=== PATIENT | female | born 1940 | race Caucasian/White ===

== ENCOUNTER 2021-06-22 09:09 | Inpatient (IN) | payer MEDICARE, MEDICAID ==
[~2021-06-22] VITALS: Ht 157.5 cm; Wt 129.1 kg
[~2021-06-22 09:09] MED LIST: ALBU8.5H8 IH; ASPI-989 PO; ATEN-72 PO; BECL8.7A5 IH; CALC-716 PO; DEXT1DRO OU; FISH1CAP27 PO; FURO40 PO; GLIM4 PO; LISI-894 PO; LORA10TA7 PO; LOVA20TA73 PO; OMEP10 PO; POTA-206 PO; PREG50 PO; PREG75 PO; SITA100 PO; TIOT185 IH; VITA400T7 PO
[2021-06-22 10:39] LABS: BASOPHILS % (AUTO) 0.7 % (0.0-2.0); EOSINOPHILS % (AUTO) 0.9 % (1.0-6.0); HEMATOCRIT 31.4 % (36-46); HEMOGLOBIN 9.9 g/dL (12.0-16.0); LYMPHOCYTES # (AUTO) 0.6 K/uL (1.0-4.8); LYMPHOCYTES % (AUTO) 3.9 % (22.0-44.0); MEAN CORPUSCULAR HEMOGLOBIN 30.8 pg (26.0-34.0); MEAN CORPUSCULAR HGB CONC 31.6 G/dL (31.0-37.0); MEAN CORPUSCULAR VOLUME 97 fL (80-100); MONOCYTES # (AUTO) 0.9 K/uL (0.1-1.0); MONOCYTES % (AUTO) 5.6 % (2.0-9.0); NEUTROPHILS # (AUTO) 14.2 K/uL (1.8-7.7); PLATELET COUNT (AUTO) 182 K/uL (150-450); RED BLOOD CELL COUNT(AUTO) 3.23 MIL/uL (4.00-5.20); RED CELL DISTRIBUTION WIDTH 15.9 % (11.5-14.5)
[2021-06-22 10:44] LABS: NEUTROPHILS % (AUTO) 88.9 % (40.0-70.0)
[2021-06-22 10:46] LABS: CALCIUM, TOTAL 7.9 mg/dL (8.8-10.5); CREATININE 4.77 mg/dL (0.60-1.30); POTASSIUM 4.5 mmol/L (3.5-5.1)
[2021-06-22 10:47] LABS: COVID AG,FIA SOURCE NASOPHARYNGEAL
[2021-06-22 11:11] LABS: ALBUMIN 3.2 g/dL (3.4-5.0); BILIRUBIN,TOTAL 0.4 mg/dL (0.1-1.0); TOTAL PROTEIN, SERUM 6.9 g/dL (6.4-8.2)
[2021-06-22 11:45] LABS: INFLUENZA TYPE A NEGATIVE FOR TYPE A (NEGATIVE); INFLUENZA TYPE B NEGATIVE FOR TYPE B (NEGATIVE)
[2021-06-22] MEDS ORDERED: CefTRIAXone 1 GM/DEXTROSE 50 ML IV ONE (12:45)
[2021-06-22] MEDS ORDERED: AZITHROMYCIN 500 MG/NS 250 ML IV ONE (12:45)
[2021-06-22] MEDS ORDERED: FUROSEMIDE 40 MG/4 ML VIAL IVP ONE (12:45)
[2021-06-22] MEDS ORDERED: ALBUTEROL SULFATE HFA 90 MCG/PUFF 8 GM INHALER IH ONE (12:45)
[2021-06-22 14:59] VITALS: BP 111/45
[2021-06-22] MEDS ORDERED: ACET-2247 PO (16:39)
[2021-06-22] MEDS ORDERED: ASPI-1444 PO (16:39)
[2021-06-22] MEDS ORDERED: SIMV-260 PO (16:39)
[2021-06-22] MEDS ORDERED: CHOL-35 PO (16:39)
[2021-06-22] MEDS ORDERED: ASCO500 PO (16:39)
[2021-06-22] MEDS ORDERED: CETI-450 PO (16:39)
[2021-06-22] MEDS ORDERED: BUME1TAB34 PO (16:39)
[2021-06-22] MEDS ORDERED: PREG75 PO (16:39)
[2021-06-22] MEDS ORDERED: CIPR250T6 PO (16:39)
[2021-06-22] MEDS ORDERED: XALA2.5OS OU (16:39)
[2021-06-22] MEDS ORDERED: BUDE10.26 IH (16:39)
[2021-06-22] MEDS ORDERED: SEVE0.8P6 PO (16:39)
[2021-06-22] MEDS ORDERED: FLUT16H NASAL (16:39)
[2021-06-22] MEDS ORDERED: CARB15DR97 OU (16:39)
[2021-06-22] MEDS ORDERED: TIOT185 IH (16:39)
[2021-06-22] MEDS ORDERED: PROP20TA18 PO (16:39)
[2021-06-22] MEDS ORDERED: PANT-31 PO (16:39)
[2021-06-22] MEDS ORDERED: SODIUM CHLORIDE 0.9% 50 ML ONE (16:45)
[2021-06-22] MEDS ORDERED: ACETAMINOPHEN 325 MG TABLET PO PRN ×2 (19:45)
[2021-06-22] MEDS ORDERED: IPRATROPIUM BROMIDE 0.5 MG/2.5 ML NEB SOLUTION NEB PRN ×2 (19:45)
[2021-06-22] MEDS ORDERED: HYDROCODONE/ACETAMINOPHEN 5-325 MG TABLET PO PRN ×2 (19:45)
[2021-06-22] MEDS ORDERED: ONDANSETRON HCL 4 MG/2 ML VIAL IVP PRN (19:45)
[2021-06-22] MEDS ORDERED: BISACODYL 10 MG RECTAL RECTAL SUPPOSITORY PR PRN ×2 (19:45)
[2021-06-22] MEDS ORDERED: MAGNESIUM HYDROXIDE SUSPENSION 30 ML UDCUP PO PRN ×2 (19:45)
[2021-06-22] MEDS ORDERED: MORPHINE SULFATE 2 MG/ML SYRINGE IVP PRN ×2 (19:45)
[2021-06-22] MEDS ORDERED: ZOLPIDEM TARTRATE 5 MG TABLET PO PRN ×2 (19:45)
[2021-06-22] MEDS ORDERED: ALBUTEROL SULFATE 2.5 MG/0.5 ML NEB SOLUTION NEB PRN ×2 (19:45)
[2021-06-22] MEDS ORDERED: SEVE800T17 PO (19:46)
[2021-06-22] MEDS ORDERED: PROP60CA31 PO (19:46)
[2021-06-22 20:32] VITALS: BP 118/65
[2021-06-22] MEDS ORDERED: DOCUSATE SODIUM 100 MG CAPSULE PO SCH (21:00)
[2021-06-22] MEDS: FLUTICASONE PROPIONATE 50 MCG/SPRAY 16 GM NASAL SPRAY NASAL SCH (21:06)
[2021-06-22] MEDS: CARBOXYMETHYLCELLULOSE SODIUM 0.4 ML OPHTHALMIC SOLUTION [PF] OU SCH (21:06)
[2021-06-22] MEDS: LATANOPROST 0.005% 2.5 ML OPHTHALMIC SOLUTION OU SCH (21:07)
[2021-06-22] MEDS: DOCUSATE SODIUM 100 MG CAPSULE PO SCH (21:07)
[2021-06-22] MEDS: BUDESONIDE/FORMOTEROL FUMARATE 160-4.5 MCG/PUFF 10.2 GM INHALER IH SCH (21:07)
[2021-06-22] MEDS: SIMVASTATIN 20 MG TABLET PO SCH (21:11)
[2021-06-22] MEDS: PREGABALIN 75 MG CAPSULE PO SCH (21:11)
[2021-06-22 21:23] LABS: GLUCOMETER DEV NAME(LOC) 5N.1C; GLUCOSE,POINT OF CARE 88 MG/DL (70-110)
[2021-06-22 23:37] VITALS: BP 129/56
[2021-06-22] MEDS: HEPARIN SODIUM,PORCINE 5,000 UNITS/ML VIAL SQ SCH (23:50)
[2021-06-23] MEDS ORDERED: HEPARIN SODIUM,PORCINE 5,000 UNITS/ML VIAL SQ SCH
[2021-06-23 01:02] LABS: GLUCOMETER DEV NAME(LOC) 5N.1C; GLUCOSE,POINT OF CARE 109 MG/DL (70-110)
[2021-06-23 06:14] VITALS: BP 133/59
[2021-06-23 07:46] VITALS: BP 125/65
[2021-06-23] MEDS: HEPARIN SODIUM,PORCINE 5,000 UNITS/ML VIAL SQ SCH ×5 (08:00→23:04)
[2021-06-23] MEDS: CefTRIAXone SODIUM 2 GM in DEXTROSE 5%-WATER 50 ML IV SCH (08:47)
[2021-06-23] MEDS: TIOTROPIUM BROMIDE 18 MCG/INH HANDIHALER [5] IH SCH (08:47)
[2021-06-23] MEDS: PANTOPRAZOLE SODIUM 40 MG/VIAL IVP SCH ×2 (08:49→09:00)
[2021-06-23] MEDS: SEVELAMER CARBONATE 800 MG TABLET PO SCH ×3 (08:52→18:37)
[2021-06-23] MEDS: BUMETANIDE 1 MG TABLET PO SCH (08:52)
[2021-06-23] MEDS: DOCUSATE SODIUM 100 MG CAPSULE PO SCH ×2 (08:53→21:21)
[2021-06-23] MEDS: CETIRIZINE HCL 10 MG TABLET PO SCH (08:54)
[2021-06-23] MEDS: PREGABALIN 75 MG CAPSULE PO SCH ×3 (08:54→21:21)
[2021-06-23] MEDS: CHOLECALCIFEROL (VIT D3) 1,000 UNITS [25 MCG] TABLET PO SCH (08:55)
[2021-06-23] MEDS: ASCORBIC ACID 500 MG TABLET PO SCH (08:55)
[2021-06-23] MEDS: ASPIRIN 81 MG DR TABLET PO SCH (08:55)
[2021-06-23] MEDS: FLUTICASONE PROPIONATE 50 MCG/SPRAY 16 GM NASAL SPRAY NASAL SCH ×2 (08:56→21:23)
[2021-06-23] MEDS: BUDESONIDE/FORMOTEROL FUMARATE 160-4.5 MCG/PUFF 10.2 GM INHALER IH SCH ×2 (08:57→21:23)
[2021-06-23] MEDS ORDERED: PANTOPRAZOLE SODIUM 40 MG DR TABLET PO SCH (09:00)
[2021-06-23] MEDS ORDERED: SODIUM CHLORIDE 0.9% 50 ML ONE (09:14)
[2021-06-23] MEDS: PROPRANOLOL HCL 60 MG ER CAPSULE PO SCH (10:00)
[2021-06-23 10:56] VITALS: BP 128/56
[2021-06-23] MEDS ORDERED: VANCOMYCIN HCL 1.5 GM in DEXTROSE 5%-WATER 250 ML IV ONE (13:45)
[2021-06-23] MEDS ORDERED: VANCOMYCIN HCL 1 GM/D5% WATER 200 ML IV PRN (14:30)
[2021-06-23 15:38] VITALS: BP 122/53
[2021-06-23] MEDS ORDERED: ALBUMIN HUMAN 25%-12.5GM/50ML 50 ML IV PRN (16:15)
[2021-06-23] MEDS ORDERED: MANNITOL 25%-12.5 GM/50 ML VIAL IVP PRN (16:15)
[2021-06-23 17:56] LABS: GLUCOMETER DEV NAME(LOC) 5S.2B; GLUCOSE,POINT OF CARE 112 MG/DL (70-110)
[2021-06-23 21:00] VITALS: BP 140/52
[2021-06-23] MEDS: CARBOXYMETHYLCELLULOSE SODIUM 0.4 ML OPHTHALMIC SOLUTION [PF] OU SCH (21:21)
[2021-06-23] MEDS: SIMVASTATIN 20 MG TABLET PO SCH (21:21)
[2021-06-23] MEDS: ACETAMINOPHEN 325 MG TABLET PO PRN (21:21)
[2021-06-23] MEDS: LATANOPROST 0.005% 2.5 ML OPHTHALMIC SOLUTION OU SCH (21:23)
[2021-06-23 21:38] LABS: GLUCOMETER DEV NAME(LOC) 5N.1C; GLUCOSE,POINT OF CARE 90 MG/DL (70-110)
[2021-06-23 21:38] LABS: GLUCOMETER DEV NAME(LOC) 5N.1C; GLUCOSE,POINT OF CARE 98 MG/DL (70-110)
[2021-06-24] VITALS: BP 118/60
[2021-06-24] MEDS: AZITHROMYCIN 500 MG/NS 250 ML IV SCH (01:27)
[2021-06-24 05:33] VITALS: BP 133/66
[2021-06-24 07:35] LABS: GLUCOMETER DEV NAME(LOC) 5N.1C; GLUCOSE,POINT OF CARE 91 MG/DL (70-110)
[2021-06-24] MEDS: SEVELAMER CARBONATE 800 MG TABLET PO SCH ×4 (08:00→17:00)
[2021-06-24 08:40] VITALS: BP 133/65
[2021-06-24] MEDS: CefTRIAXone SODIUM 2 GM in DEXTROSE 5%-WATER 50 ML IV SCH (08:53)
[2021-06-24] MEDS: HEPARIN SODIUM,PORCINE 5,000 UNITS/ML VIAL SQ SCH ×3 (08:54→23:14)
[2021-06-24] MEDS: PANTOPRAZOLE SODIUM 40 MG/VIAL IVP SCH (08:55)
[2021-06-24] MEDS: TIOTROPIUM BROMIDE 18 MCG/INH HANDIHALER [5] IH SCH (08:55)
[2021-06-24] MEDS: BUMETANIDE 1 MG TABLET PO SCH (08:56)
[2021-06-24] MEDS: CHOLECALCIFEROL (VIT D3) 1,000 UNITS [25 MCG] TABLET PO SCH (08:57)
[2021-06-24] MEDS: PROPRANOLOL HCL 60 MG ER CAPSULE PO SCH (08:57)
[2021-06-24] MEDS: ASCORBIC ACID 500 MG TABLET PO SCH (08:57)
[2021-06-24] MEDS: CETIRIZINE HCL 10 MG TABLET PO SCH (08:57)
[2021-06-24] MEDS: ASPIRIN 81 MG DR TABLET PO SCH (09:00)
[2021-06-24] MEDS: DOCUSATE SODIUM 100 MG CAPSULE PO SCH ×2 (09:00→20:24)
[2021-06-24] MEDS: PREGABALIN 75 MG CAPSULE PO SCH ×3 (09:00→20:23)
[2021-06-24] MEDS: BUDESONIDE/FORMOTEROL FUMARATE 160-4.5 MCG/PUFF 10.2 GM INHALER IH SCH ×2 (09:01→20:25)
[2021-06-24] MEDS: FLUTICASONE PROPIONATE 50 MCG/SPRAY 16 GM NASAL SPRAY NASAL SCH ×2 (09:01→20:25)
[2021-06-24] MEDS ORDERED: SODIUM CHLORIDE 0.9% 250 ML IV ONE (09:40)
[2021-06-24 12:00] VITALS: BP 137/66
[2021-06-24 12:41] LABS: CREATININE 4.77 mg/dL (0.60-1.30); POTASSIUM 5.3 mmol/L (3.5-5.1)
[2021-06-24 12:49] LABS: ALBUMIN 2.9 g/dL (3.4-5.0); BILIRUBIN,TOTAL 0.3 mg/dL (0.1-1.0); TOTAL PROTEIN, SERUM 6.9 g/dL (6.4-8.2)
[2021-06-24 14:12] LABS: BASOPHILS % (AUTO) 0.5 % (0.0-2.0); HEMATOCRIT 33.1 % (36-46); HEMOGLOBIN 10.1 g/dL (12.0-16.0); LYMPHOCYTES # (AUTO) 1.2 K/uL (1.0-4.8); LYMPHOCYTES % (AUTO) 12.4 % (22.0-44.0); MEAN CORPUSCULAR HEMOGLOBIN 30.8 pg (26.0-34.0); MEAN CORPUSCULAR HGB CONC 30.5 G/dL (31.0-37.0); MEAN CORPUSCULAR VOLUME 101 fL (80-100); MONOCYTES # (AUTO) 0.9 K/uL (0.1-1.0); MONOCYTES % (AUTO) 9.1 % (2.0-9.0); NEUTROPHILS # (AUTO) 7.4 K/uL (1.8-7.7); PLATELET COUNT (AUTO) 131 K/uL (150-450); RED BLOOD CELL COUNT(AUTO) 3.28 MIL/uL (4.00-5.20); RED CELL DISTRIBUTION WIDTH 17.1 % (11.5-14.5)
[2021-06-24 16:41] VITALS: BP 119/60
[2021-06-24 20:00] VITALS: BP 118/64
[2021-06-24 20:16] LABS: GLUCOMETER DEV NAME(LOC) 5N.3; GLUCOSE,POINT OF CARE 120 MG/DL (70-110)
[2021-06-24] MEDS: SIMVASTATIN 20 MG TABLET PO SCH (20:23)
[2021-06-24] MEDS: LATANOPROST 0.005% 2.5 ML OPHTHALMIC SOLUTION OU SCH (20:25)
[2021-06-24] MEDS: ACETAMINOPHEN 325 MG TABLET PO PRN (20:28)
[2021-06-24] MEDS: CARBOXYMETHYLCELLULOSE SODIUM 0.4 ML OPHTHALMIC SOLUTION [PF] OU SCH (20:29)
[2021-06-24] MEDS ORDERED: DICLOFENAC SODIUM 1% 100 GM GEL [2GM] TP PRN (21:00)
[2021-06-25] VITALS (7 sets, daily range): BP systolic 104–139; BP diastolic 53–72
[2021-06-25] MEDS: AZITHROMYCIN 500 MG/NS 250 ML IV SCH (00:27)
[2021-06-25 06:40] LABS: EOSINOPHILS % (AUTO) 3.7 % (1.0-6.0); HEMATOCRIT 27.3 % (36-46); HEMOGLOBIN 8.6 g/dL (12.0-16.0); LYMPHOCYTES # (AUTO) 1.4 K/uL (1.0-4.8); LYMPHOCYTES % (AUTO) 20.5 % (22.0-44.0); MEAN CORPUSCULAR HEMOGLOBIN 31.1 pg (26.0-34.0); MEAN CORPUSCULAR HGB CONC 31.7 G/dL (31.0-37.0); MEAN CORPUSCULAR VOLUME 98 fL (80-100); MONOCYTES # (AUTO) 0.7 K/uL (0.1-1.0); MONOCYTES % (AUTO) 10.6 % (2.0-9.0); NEUTROPHILS # (AUTO) 4.4 K/uL (1.8-7.7); NEUTROPHILS % (AUTO) 64.2 % (40.0-70.0); PLATELET COUNT (AUTO) 153 K/uL (150-450); RED BLOOD CELL COUNT(AUTO) 2.78 MIL/uL (4.00-5.20); RED CELL DISTRIBUTION WIDTH 16.4 % (11.5-14.5)
[2021-06-25 07:02] LABS: ALBUMIN 2.6 g/dL (3.4-5.0); BILIRUBIN,TOTAL 0.3 mg/dL (0.1-1.0); CALCIUM, TOTAL 7.8 mg/dL (8.8-10.5); CREATININE 6.07 mg/dL (0.60-1.30); POTASSIUM 5.1 mmol/L (3.5-5.1); TOTAL PROTEIN, SERUM 6.1 g/dL (6.4-8.2)
[2021-06-25] MEDS: DOCUSATE SODIUM 100 MG CAPSULE PO SCH ×2 (08:56→20:52)
[2021-06-25] MEDS: PREGABALIN 75 MG CAPSULE PO SCH ×3 (08:56→20:52)
[2021-06-25] MEDS: ASPIRIN 81 MG DR TABLET PO SCH (08:57)
[2021-06-25] MEDS: HEPARIN SODIUM,PORCINE 5,000 UNITS/ML VIAL SQ SCH ×3 (08:57→22:40)
[2021-06-25] MEDS: PANTOPRAZOLE SODIUM 40 MG/VIAL IVP SCH (08:57)
[2021-06-25] MEDS: FLUTICASONE PROPIONATE 50 MCG/SPRAY 16 GM NASAL SPRAY NASAL SCH ×2 (08:58→20:53)
[2021-06-25] MEDS: BUDESONIDE/FORMOTEROL FUMARATE 160-4.5 MCG/PUFF 10.2 GM INHALER IH SCH ×2 (08:59→20:52)
[2021-06-25] MEDS: TIOTROPIUM BROMIDE 18 MCG/INH HANDIHALER [5] IH SCH (09:00)
[2021-06-25] MEDS ORDERED: SODIUM CHLORIDE 0.9% 2,000 ML ONE (09:10)
[2021-06-25] MEDS: SEVELAMER CARBONATE 800 MG TABLET PO SCH ×3 (09:17→17:58)
[2021-06-25] MEDS: BUMETANIDE 1 MG TABLET PO SCH (09:17)
[2021-06-25] MEDS: CefTRIAXone SODIUM 2 GM in DEXTROSE 5%-WATER 50 ML IV SCH (09:18)
[2021-06-25] MEDS: PROPRANOLOL HCL 60 MG ER CAPSULE PO SCH (09:19)
[2021-06-25] MEDS: CETIRIZINE HCL 10 MG TABLET PO SCH (09:19)
[2021-06-25] MEDS: ASCORBIC ACID 500 MG TABLET PO SCH (10:51)
[2021-06-25] MEDS: CHOLECALCIFEROL (VIT D3) 1,000 UNITS [25 MCG] TABLET PO SCH (10:51)
[2021-06-25 13:59] LABS: GLUCOMETER DEV NAME(LOC) 5N.1C; GLUCOSE,POINT OF CARE 120 MG/DL (70-110)
[2021-06-25 13:59] LABS: GLUCOMETER DEV NAME(LOC) 5N.1C; GLUCOSE,POINT OF CARE 94 MG/DL (70-110)
[2021-06-25 14:00] LABS: GLUCOMETER DEV NAME(LOC) 5N.1C; GLUCOSE,POINT OF CARE 100 MG/DL (70-110)
[2021-06-25] MEDS: ACETAMINOPHEN 325 MG TABLET PO PRN (20:52)
[2021-06-25] MEDS: SIMVASTATIN 20 MG TABLET PO SCH (20:52)
[2021-06-25] MEDS: LATANOPROST 0.005% 2.5 ML OPHTHALMIC SOLUTION OU SCH (20:53)
[2021-06-25] MEDS: CARBOXYMETHYLCELLULOSE SODIUM 0.4 ML OPHTHALMIC SOLUTION [PF] OU SCH (20:55)
[2021-06-26] MEDS: ACETAMINOPHEN 325 MG TABLET PO PRN (00:53)
[2021-06-26] MEDS: AZITHROMYCIN 500 MG/NS 250 ML IV SCH (01:22)
[2021-06-26 05:14] VITALS: BP 124/54
[2021-06-26 06:53] LABS: BASOPHILS % (AUTO) 1.1 % (0.0-2.0); EOSINOPHILS % (AUTO) 3.1 % (1.0-6.0); HEMATOCRIT 28.7 % (36-46); HEMOGLOBIN 9.3 g/dL (12.0-16.0); LYMPHOCYTES # (AUTO) 1.4 K/uL (1.0-4.8); LYMPHOCYTES % (AUTO) 20.9 % (22.0-44.0); MEAN CORPUSCULAR HEMOGLOBIN 31.1 pg (26.0-34.0); MEAN CORPUSCULAR HGB CONC 32.3 G/dL (31.0-37.0); MEAN CORPUSCULAR VOLUME 96 fL (80-100); MONOCYTES # (AUTO) 0.7 K/uL (0.1-1.0); MONOCYTES % (AUTO) 9.5 % (2.0-9.0); NEUTROPHILS # (AUTO) 4.5 K/uL (1.8-7.7); NEUTROPHILS % (AUTO) 65.4 % (40.0-70.0); PLATELET COUNT (AUTO) 139 K/uL (150-450); RED BLOOD CELL COUNT(AUTO) 2.98 MIL/uL (4.00-5.20); RED CELL DISTRIBUTION WIDTH 15.7 % (11.5-14.5)
[2021-06-26 07:01] VITALS: BP 122/62
[2021-06-26 07:01] LABS: ALBUMIN 2.8 g/dL (3.4-5.0); BILIRUBIN,TOTAL 0.4 mg/dL (0.1-1.0); CALCIUM, TOTAL 8.1 mg/dL (8.8-10.5); CREATININE 4.57 mg/dL (0.60-1.30); POTASSIUM 4.5 mmol/L (3.5-5.1); TOTAL PROTEIN, SERUM 6.2 g/dL (6.4-8.2); VANCOMYCIN,RANDOM 11.8 mcg/mL (25.0-50.0)
[2021-06-26] MEDS ORDERED: VANCOMYCIN HCL 1 GM/D5% WATER 200 ML IV ONE (08:00)
[2021-06-26] MEDS: HEPARIN SODIUM,PORCINE 5,000 UNITS/ML VIAL SQ SCH (08:00)
[2021-06-26] MEDS: CefTRIAXone SODIUM 2 GM in DEXTROSE 5%-WATER 50 ML IV SCH (08:05)
[2021-06-26] MEDS: PANTOPRAZOLE SODIUM 40 MG/VIAL IVP SCH (08:08)
[2021-06-26] MEDS: PREGABALIN 75 MG CAPSULE PO SCH (08:09)
[2021-06-26] MEDS: ASPIRIN 81 MG DR TABLET PO SCH (08:09)
[2021-06-26] MEDS: SEVELAMER CARBONATE 800 MG TABLET PO SCH ×2 (08:09→12:36)
[2021-06-26] MEDS: CETIRIZINE HCL 10 MG TABLET PO SCH (08:09)
[2021-06-26] MEDS: ASCORBIC ACID 500 MG TABLET PO SCH (08:09)
[2021-06-26] MEDS: CHOLECALCIFEROL (VIT D3) 1,000 UNITS [25 MCG] TABLET PO SCH (08:09)
[2021-06-26] MEDS: BUMETANIDE 1 MG TABLET PO SCH (08:10)
[2021-06-26] MEDS: DOCUSATE SODIUM 100 MG CAPSULE PO SCH (08:11)
[2021-06-26] MEDS: FLUTICASONE PROPIONATE 50 MCG/SPRAY 16 GM NASAL SPRAY NASAL SCH (08:48)
[2021-06-26] MEDS: BUDESONIDE/FORMOTEROL FUMARATE 160-4.5 MCG/PUFF 10.2 GM INHALER IH SCH (08:49)
[2021-06-26] MEDS: TIOTROPIUM BROMIDE 18 MCG/INH HANDIHALER [5] IH SCH (08:50)
[2021-06-26] MEDS: PROPRANOLOL HCL 60 MG ER CAPSULE PO SCH (09:39)
[2021-06-26 11:31] VITALS: BP 129/58
[2021-06-26] MEDS ORDERED: AZIT-84 PO (12:18)
[2021-06-26] MEDS ORDERED: CEFX2I IM (12:19)
[2021-06-26] MEDS ORDERED: CEFX2I IV (12:19)
[2021-06-26 14:20] VITALS: BP 130/52
== END 2021-06-26 14:45 | DRG 193 ==
LOC: EMS 09:10 → 5N 13:23 → 5S 06-25 06:33
PROVIDERS: ADMIT Hospitalist; ATTEND Hospitalist
DX: J18.9 Pneumonia, unspecified organism (principal); I50.23 Acute on chronic systolic (congestive) heart failure; N18.6 End stage renal disease; E43 Unspecified severe protein-calorie malnutrition; I13.2 Hypertensive heart and chronic kidney disease with heart failure and with stage 5 chronic kidney disease, or end stage renal disease; J44.0 Chronic obstructive pulmonary disease with (acute) lower respiratory infection; E87.1 Hypo-osmolality and hyponatremia; J44.1 Chronic obstructive pulmonary disease with (acute) exacerbation; N25.81 Secondary hyperparathyroidism of renal origin; Z68.43 Body mass index [BMI] 50.0-59.9, adult; R65.10 Systemic inflammatory response syndrome (SIRS) of non-infectious origin without acute organ dysfunction; E11.22 Type 2 diabetes mellitus with diabetic chronic kidney disease; Z20.822 Contact with and (suspected) exposure to COVID-19; E83.39 Other disorders of phosphorus metabolism; E83.51 Hypocalcemia; E87.5 Hyperkalemia; R62.7 Adult failure to thrive; D63.8 Anemia in other chronic diseases classified elsewhere; M81.0 Age-related osteoporosis without current pathological fracture; E11.40 Type 2 diabetes mellitus with diabetic neuropathy, unspecified; I44.0 Atrioventricular block, first degree; Z86.73 Personal history of transient ischemic attack (TIA), and cerebral infarction without residual deficits; Z99.2 Dependence on renal dialysis; Z99.81 Dependence on supplemental oxygen; Z78.9 Other specified health status; Z82.49 Family history of ischemic heart disease and other diseases of the circulatory system; Z83.3 Family history of diabetes mellitus; Z88.8 Allergy status to other drugs, medicaments and biological substances
CPT/HCPCS: 71045; 80053; 80202; 82550; 82962; 83880; 84484; 85025; 85379; 87040; 87081; 87205; 87340; 87804; 93005; 94640; 97110; 97162; 97530; 99285; C9113; J0456; J0696; J1644; J1940; J3370; J3535; J7030; J7050; J7060; 36415-L1; 36415-TC; U0003

== ENCOUNTER 2022-11-20 21:16 | Inpatient (IN) | payer MEDICARE, MEDICAID ==
[~2022-11-20] VITALS: Ht 162.6 cm; Wt 116.5 kg
[~2022-11-20 21:16] MED LIST changes: +ACET-2247 PO; -ALBU8.5H8 IH; +AMLO5TAB66 PO; +AMOX1TAB15 PO; +ASCO500 PO; +ASPI-1444 PO; -ASPI-989 PO; -ATEN-72 PO; +BECL10.62 IH; -BECL8.7A5 IH; +BISA-151 PO; -CALC-716 PO; +CHOL25TA4 PO; -DEXT1DRO OU; +DOCU-350 PO; -FISH1CAP27 PO; +FLUT16SP NASAL; +FURO20 PO; -FURO40 PO; -GLIM4 PO; -LISI-894 PO; +METO-408 PO; -OMEP10 PO; +PANT-31 PO; -POTA-206 PO; -PREG50 PO; +PREG50CA63 PO; -PREG75 PO; +SEVE800T17 PO; -SITA100 PO; -VITA400T7 PO
[2022-11-20 22:37] LABS: COVID AG,FIA SOURCE NASOPHARYNGEAL
[2022-11-20] MEDS: OXYGEN THERAPY IH SCH (22:39)
[2022-11-20 22:56] LABS: INFLUENZA TYPE A NEGATIVE FOR TYPE A (NEGATIVE); INFLUENZA TYPE B NEGATIVE FOR TYPE B (NEGATIVE)
[2022-11-20] MEDS ORDERED: ONDANSETRON HCL 4 MG/2 ML VIAL IVP PRN (23:30)
[2022-11-20] MEDS ORDERED: ALBUTEROL SULFATE 2.5 MG/0.5 ML NEB SOLUTION NEB PRN (23:30)
[2022-11-20] MEDS ORDERED: IPRATROPIUM BROMIDE 0.5 MG/2.5 ML NEB SOLUTION NEB PRN (23:30)
[2022-11-21] MEDS ORDERED: HEPARIN SODIUM,PORCINE 5,000 UNITS/ML VIAL SQ SCH
[2022-11-21 00:25] LABS: EOSINOPHILS % (AUTO) 1.1 % (1.0-6.0); LYMPHOCYTES # (AUTO) 0.6 K/uL (1.0-4.8); MONOCYTES # (AUTO) 0.6 K/uL (0.1-1.0)
[2022-11-21] MEDS: FUROSEMIDE 40 MG/4 ML VIAL IVP ONE ×2 (00:28→02:14)
[2022-11-21 00:29] LABS: BASOPHILS % (AUTO) 1.1 % (0.0-2.0); MEAN CORPUSCULAR HEMOGLOBIN 31.9 pg (26.0-34.0); MEAN CORPUSCULAR HGB CONC 30.5 G/dL (31.0-37.0); MEAN CORPUSCULAR VOLUME 104 fL (80-100); MONOCYTES % (AUTO) 7.6 % (2.0-9.0); NEUTROPHILS % (AUTO) 83.2 % (40.0-70.0); PLATELET COUNT (AUTO) 126 K/uL (150-450); RED BLOOD CELL COUNT(AUTO) 3.44 MIL/uL (4.00-5.20); RED CELL DISTRIBUTION WIDTH 17.2 % (11.5-14.5)
[2022-11-21 00:35] LABS: CALCIUM, TOTAL 7.9 mg/dL (8.8-10.5); CREATININE 5.15 mg/dL (0.60-1.30); POTASSIUM 4.1 mmol/L (3.5-5.1)
[2022-11-21 00:41] LABS: BILIRUBIN,TOTAL 0.3 mg/dL (0.1-1.0); TOTAL PROTEIN, SERUM 6.3 g/dL (6.4-8.2)
[2022-11-21 00:57] LABS: LACTIC ACID 0.3 mmol/L (0.4-2.0)
[2022-11-21] MEDS ORDERED: HEPARIN SODIUM,PORCINE 5,000 UNITS/ML VIAL IVP PRN ×2 (03:15)
[2022-11-21] MEDS ORDERED: HEPARIN SODIUM 25000 UNITS/D5W 250 ML IV PRN (03:15)
[2022-11-21] MEDS ORDERED: BUMETANIDE 0.25 MG/ML 4 ML VIAL IVP ONE (03:30)
[2022-11-21 04:28] LABS: BASOPHILS % (AUTO) 0.6 % (0.0-2.0); EOSINOPHILS % (AUTO) 1.3 % (1.0-6.0); HEMATOCRIT 35.9 % (36-46); LYMPHOCYTES # (AUTO) 0.9 K/uL (1.0-4.8); LYMPHOCYTES % (AUTO) 10.5 % (22.0-44.0); MEAN CORPUSCULAR HEMOGLOBIN 31.9 pg (26.0-34.0); MEAN CORPUSCULAR HGB CONC 30.5 G/dL (31.0-37.0); MEAN CORPUSCULAR VOLUME 105 fL (80-100); MONOCYTES # (AUTO) 0.8 K/uL (0.1-1.0); MONOCYTES % (AUTO) 9.2 % (2.0-9.0); NEUTROPHILS # (AUTO) 6.5 K/uL (1.8-7.7); NEUTROPHILS % (AUTO) 78.4 % (40.0-70.0); PLATELET COUNT (AUTO) 129 K/uL (150-450); RED BLOOD CELL COUNT(AUTO) 3.44 MIL/uL (4.00-5.20); RED CELL DISTRIBUTION WIDTH 17.1 % (11.5-14.5)
[2022-11-21] MEDS: PIPERACILLIN SODIUM/TAZOBACTAM 2.25 GM in DEXTROSE 5%-WATER 50 ML IV SCH ×3 (05:06→20:59)
[2022-11-21 05:39] VITALS: BP 118/54
[2022-11-21] MEDS: SEVELAMER CARBONATE 800 MG TABLET PO SCH ×4 (08:00→18:03)
[2022-11-21] MEDS: ASCORBIC ACID 500 MG TABLET PO SCH ×2 (08:22→13:06)
[2022-11-21] MEDS: OXYGEN THERAPY IH SCH (08:23)
[2022-11-21] MEDS: DOCUSATE SODIUM 250 MG CAPSULE PO SCH ×2 (08:24→13:05)
[2022-11-21] MEDS: METOPROLOL SUCCINATE 25 MG ER TABLET PO SCH ×2 (08:24→13:06)
[2022-11-21] MEDS: LORATADINE 10 MG TABLET PO SCH ×2 (08:24→13:05)
[2022-11-21] MEDS: ASPIRIN 81 MG DR TABLET PO SCH ×2 (08:24→13:06)
[2022-11-21] MEDS: AmLODIPine BESYLATE 5 MG TABLET PO SCH ×2 (08:24→09:00)
[2022-11-21] MEDS: CHOLECALCIFEROL (VIT D3) 1,000 UNITS [25 MCG] TABLET PO SCH ×2 (08:25→13:06)
[2022-11-21] MEDS: DEXAMETHASONE SOD PHOS 4 MG/ML VIAL IVP SCH (08:25)
[2022-11-21 08:50] VITALS: BP 122/50
[2022-11-21] MEDS: PANTOPRAZOLE SODIUM 40 MG DR TABLET PO SCH (09:00)
[2022-11-21 11:26] VITALS: BP 142/45
[2022-11-21] MEDS: FLUTICASONE PROPIONATE 50 MCG/SPRAY 16 GM NASAL SPRAY NASAL SCH ×2 (13:05→21:00)
[2022-11-21] MEDS: TIOTROPIUM BROMIDE 18 MCG/INH HANDIHALER [5] IH SCH (13:05)
[2022-11-21] MEDS ORDERED: LATA2.5D14 OU (13:53)
[2022-11-21 16:24] VITALS: BP 118/49
[2022-11-21 18:37] LABS: GLUCOMETER DEV NAME(LOC) 5N.2C; GLUCOSE,POINT OF CARE 134 MG/DL (70-110)
[2022-11-21 18:46] LABS: GLUCOMETER DEV NAME(LOC) 5S.2C; GLUCOSE,POINT OF CARE 100 MG/DL (70-110)
[2022-11-21 18:46] LABS: GLUCOMETER DEV NAME(LOC) 5S.2C; GLUCOSE,POINT OF CARE 152 MG/DL (70-110)
[2022-11-21 20:03] VITALS: BP 107/63
[2022-11-21] MEDS: HEPARIN SODIUM,PORCINE 5,000 UNITS/ML VIAL SQ SCH (20:59)
[2022-11-21] MEDS: LATANOPROST 0.005% 2.5 ML OPHTHALMIC SOLUTION OU SCH (21:35)
[2022-11-21 23:54] VITALS: BP 108/43
[2022-11-22] VITALS (9 sets, daily range): BP systolic 103–154; BP diastolic 37–62
[2022-11-22] MEDS: PIPERACILLIN SODIUM/TAZOBACTAM 2.25 GM in DEXTROSE 5%-WATER 50 ML IV SCH ×3 (04:02→20:13)
[2022-11-22] MEDS: DEXAMETHASONE SOD PHOS 4 MG/ML VIAL IVP SCH (04:14)
[2022-11-22 07:31] LABS: BASOPHILS % (AUTO) 0.9 % (0.0-2.0); EOSINOPHILS % (AUTO) 0.3 % (1.0-6.0); HEMATOCRIT 32.9 % (36-46); HEMOGLOBIN 10.3 g/dL (12.0-16.0); LYMPHOCYTES # (AUTO) 0.6 K/uL (1.0-4.8); LYMPHOCYTES % (AUTO) 10.6 % (22.0-44.0); MEAN CORPUSCULAR HEMOGLOBIN 32.1 pg (26.0-34.0); MEAN CORPUSCULAR HGB CONC 31.4 G/dL (31.0-37.0); MEAN CORPUSCULAR VOLUME 102 fL (80-100); MONOCYTES # (AUTO) 0.6 K/uL (0.1-1.0); MONOCYTES % (AUTO) 10.1 % (2.0-9.0); NEUTROPHILS # (AUTO) 4.3 K/uL (1.8-7.7); NEUTROPHILS % (AUTO) 78.1 % (40.0-70.0); PLATELET COUNT (AUTO) 156 K/uL (150-450); RED BLOOD CELL COUNT(AUTO) 3.22 MIL/uL (4.00-5.20); RED CELL DISTRIBUTION WIDTH 16.3 % (11.5-14.5)
[2022-11-22 07:38] LABS: CALCIUM, TOTAL 7.8 mg/dL (8.8-10.5); CREATININE 6.68 mg/dL (0.60-1.30); POTASSIUM 4.1 mmol/L (3.5-5.1)
[2022-11-22] MEDS: METOPROLOL SUCCINATE 25 MG ER TABLET PO SCH (09:00)
[2022-11-22] MEDS: AmLODIPine BESYLATE 5 MG TABLET PO SCH (09:00)
[2022-11-22] MEDS: PANTOPRAZOLE SODIUM 40 MG DR TABLET PO SCH (10:38)
[2022-11-22] MEDS: ASCORBIC ACID 500 MG TABLET PO SCH (10:38)
[2022-11-22] MEDS: SEVELAMER CARBONATE 800 MG TABLET PO SCH ×3 (10:38→18:24)
[2022-11-22] MEDS: DOCUSATE SODIUM 250 MG CAPSULE PO SCH (10:38)
[2022-11-22] MEDS: CHOLECALCIFEROL (VIT D3) 1,000 UNITS [25 MCG] TABLET PO SCH (10:39)
[2022-11-22] MEDS: TIOTROPIUM BROMIDE 18 MCG/INH HANDIHALER [5] IH SCH (10:39)
[2022-11-22] MEDS: HEPARIN SODIUM,PORCINE 5,000 UNITS/ML VIAL SQ SCH ×2 (10:39→20:13)
[2022-11-22] MEDS: LORATADINE 10 MG TABLET PO SCH (10:39)
[2022-11-22] MEDS: ASPIRIN 81 MG DR TABLET PO SCH (10:39)
[2022-11-22] MEDS: FLUTICASONE PROPIONATE 50 MCG/SPRAY 16 GM NASAL SPRAY NASAL SCH ×2 (11:04→20:13)
[2022-11-22] MEDS ORDERED: VANCOMYCIN HCL 1.25 GM in DEXTROSE 5%-WATER 250 ML IV ONE (15:00)
[2022-11-22] MEDS ORDERED: VANCOMYCIN 1GM/WATER(PEG/NADA) 200 ML IV PRN (15:00)
[2022-11-22 15:01] LABS: ALBUMIN 2.8 g/dL (3.4-5.0); BILIRUBIN,DIRECT 0.1 mg/dL (0.00-0.20); BILIRUBIN,TOTAL 0.3 mg/dL (0.1-1.0); TOTAL PROTEIN, SERUM 5.9 g/dL (6.4-8.2)
[2022-11-22] MEDS ORDERED: SODIUM CHLORIDE 0.9% 100 ML ONE (17:36)
[2022-11-22] MEDS ORDERED: IOHEXOL 350 MG/ML 100 ML VIAL ONE (17:36)
[2022-11-22] MEDS: LATANOPROST 0.005% 2.5 ML OPHTHALMIC SOLUTION OU SCH (20:22)
[2022-11-23] VITALS (8 sets, daily range): BP systolic 96–147; BP diastolic 39–71
[2022-11-23] MEDS: PIPERACILLIN SODIUM/TAZOBACTAM 2.25 GM in DEXTROSE 5%-WATER 50 ML IV SCH ×3 (04:15→20:15)
[2022-11-23] MEDS: DEXAMETHASONE SOD PHOS 4 MG/ML VIAL IVP SCH (04:18)
[2022-11-23 07:19] LABS: BASOPHILS % (AUTO) 0.8 % (0.0-2.0); EOSINOPHILS % (AUTO) 0.2 % (1.0-6.0); HEMOGLOBIN 10.4 g/dL (12.0-16.0); LYMPHOCYTES # (AUTO) 0.5 K/uL (1.0-4.8); LYMPHOCYTES % (AUTO) 7.5 % (22.0-44.0); MEAN CORPUSCULAR HEMOGLOBIN 31.3 pg (26.0-34.0); MEAN CORPUSCULAR HGB CONC 30.5 G/dL (31.0-37.0); MEAN CORPUSCULAR VOLUME 103 fL (80-100); MONOCYTES # (AUTO) 0.5 K/uL (0.1-1.0); MONOCYTES % (AUTO) 6.8 % (2.0-9.0); NEUTROPHILS # (AUTO) 6.1 K/uL (1.8-7.7); NEUTROPHILS % (AUTO) 84.7 % (40.0-70.0); PLATELET COUNT (AUTO) 193 K/uL (150-450); RED BLOOD CELL COUNT(AUTO) 3.31 MIL/uL (4.00-5.20); RED CELL DISTRIBUTION WIDTH 16.4 % (11.5-14.5)
[2022-11-23 07:25] LABS: CALCIUM, TOTAL 8.3 mg/dL (8.8-10.5); CREATININE 5.53 mg/dL (0.60-1.30)
[2022-11-23] MEDS: DOCUSATE SODIUM 250 MG CAPSULE PO SCH (09:59)
[2022-11-23] MEDS: METOPROLOL SUCCINATE 25 MG ER TABLET PO SCH (10:00)
[2022-11-23] MEDS: CHOLECALCIFEROL (VIT D3) 1,000 UNITS [25 MCG] TABLET PO SCH (10:01)
[2022-11-23] MEDS: TIOTROPIUM BROMIDE 18 MCG/INH HANDIHALER [5] IH SCH (10:01)
[2022-11-23] MEDS: LORATADINE 10 MG TABLET PO SCH (10:01)
[2022-11-23] MEDS: ASPIRIN 81 MG DR TABLET PO SCH (10:01)
[2022-11-23] MEDS: AmLODIPine BESYLATE 5 MG TABLET PO SCH (10:01)
[2022-11-23] MEDS: ASCORBIC ACID 500 MG TABLET PO SCH (10:01)
[2022-11-23] MEDS: SEVELAMER CARBONATE 800 MG TABLET PO SCH ×3 (10:01→19:04)
[2022-11-23] MEDS: PANTOPRAZOLE SODIUM 40 MG DR TABLET PO SCH (10:02)
[2022-11-23] MEDS: HEPARIN SODIUM,PORCINE 5,000 UNITS/ML VIAL SQ SCH ×2 (10:02→20:16)
[2022-11-23] MEDS: FLUTICASONE PROPIONATE 50 MCG/SPRAY 16 GM NASAL SPRAY NASAL SCH ×2 (10:08→20:15)
[2022-11-23] MEDS ORDERED: SODIUM CHLORIDE 0.9% 100 ML ONE ×2 (10:22→13:31)
[2022-11-23] MEDS ORDERED: IOHEXOL 350 MG/ML 100 ML VIAL ONE (10:22)
[2022-11-23] MEDS: ACETAMINOPHEN 325 MG TABLET PO PRN (12:46)
[2022-11-23] MEDS ORDERED: IOHEXOL 350 MG/ML 150 ML VIAL ONE (13:31)
[2022-11-23] MEDS: LATANOPROST 0.005% 2.5 ML OPHTHALMIC SOLUTION OU SCH (20:16)
[2022-11-23] MEDS ORDERED: SODIUM CHLORIDE 0.9% 500 ML IV ONE (20:30)
[2022-11-24] VITALS (12 sets, daily range): BP systolic 104–137; BP diastolic 35–62
[2022-11-24 00:11] LABS: GLUCOMETER DEV NAME(LOC) 6N.2B; GLUCOSE,POINT OF CARE 152 MG/DL (70-110)
[2022-11-24] MEDS: PIPERACILLIN SODIUM/TAZOBACTAM 2.25 GM in DEXTROSE 5%-WATER 50 ML IV SCH ×3 (03:56→20:14)
[2022-11-24] MEDS: DEXAMETHASONE SOD PHOS 4 MG/ML VIAL IVP SCH (04:55)
[2022-11-24 07:30] LABS: BASOPHILS % (AUTO) 0.8 % (0.0-2.0); EOSINOPHILS % (AUTO) 0.6 % (1.0-6.0); HEMATOCRIT 33.5 % (36-46); HEMOGLOBIN 10.3 g/dL (12.0-16.0); LYMPHOCYTES # (AUTO) 0.6 K/uL (1.0-4.8); LYMPHOCYTES % (AUTO) 8.8 % (22.0-44.0); MEAN CORPUSCULAR HEMOGLOBIN 31.4 pg (26.0-34.0); MEAN CORPUSCULAR HGB CONC 30.8 G/dL (31.0-37.0); MEAN CORPUSCULAR VOLUME 102 fL (80-100); MONOCYTES # (AUTO) 0.4 K/uL (0.1-1.0); NEUTROPHILS # (AUTO) 5.4 K/uL (1.8-7.7); NEUTROPHILS % (AUTO) 83.8 % (40.0-70.0); PLATELET COUNT (AUTO) 194 K/uL (150-450); RED BLOOD CELL COUNT(AUTO) 3.28 MIL/uL (4.00-5.20); RED CELL DISTRIBUTION WIDTH 16.6 % (11.5-14.5)
[2022-11-24 07:40] LABS: CALCIUM, TOTAL 8.4 mg/dL (8.8-10.5); CREATININE 6.92 mg/dL (0.60-1.30); POTASSIUM 4.1 mmol/L (3.5-5.1)
[2022-11-24] MEDS: CHOLECALCIFEROL (VIT D3) 1,000 UNITS [25 MCG] TABLET PO SCH (08:12)
[2022-11-24] MEDS: AmLODIPine BESYLATE 5 MG TABLET PO SCH (08:12)
[2022-11-24] MEDS: ASCORBIC ACID 500 MG TABLET PO SCH (08:12)
[2022-11-24] MEDS: PANTOPRAZOLE SODIUM 40 MG DR TABLET PO SCH (08:13)
[2022-11-24] MEDS: DOCUSATE SODIUM 250 MG CAPSULE PO SCH (08:13)
[2022-11-24] MEDS: TIOTROPIUM BROMIDE 18 MCG/INH HANDIHALER [5] IH SCH (08:14)
[2022-11-24] MEDS: HEPARIN SODIUM,PORCINE 5,000 UNITS/ML VIAL SQ SCH ×2 (08:14→20:14)
[2022-11-24] MEDS: ASPIRIN 81 MG DR TABLET PO SCH (08:14)
[2022-11-24] MEDS: METOPROLOL SUCCINATE 25 MG ER TABLET PO SCH (08:15)
[2022-11-24] MEDS: LORATADINE 10 MG TABLET PO SCH (08:15)
[2022-11-24] MEDS: FLUTICASONE PROPIONATE 50 MCG/SPRAY 16 GM NASAL SPRAY NASAL SCH ×2 (08:27→20:14)
[2022-11-24] MEDS: SEVELAMER CARBONATE 800 MG TABLET PO SCH ×3 (08:31→18:13)
[2022-11-24 08:42] LABS: VANCOMYCIN,RANDOM 9.8 mcg/mL (25.0-50.0)
[2022-11-24] MEDS ORDERED: VANCOMYCIN 1GM/WATER(PEG/NADA) 200 ML IV ONE (09:00)
[2022-11-24] MEDS: ACETAMINOPHEN 325 MG TABLET PO PRN (18:49)
[2022-11-24] MEDS: LATANOPROST 0.005% 2.5 ML OPHTHALMIC SOLUTION OU SCH (20:14)
[2022-11-25] VITALS (10 sets, daily range): BP systolic 103–130; BP diastolic 37–59
[2022-11-25] MEDS: PIPERACILLIN SODIUM/TAZOBACTAM 2.25 GM in DEXTROSE 5%-WATER 50 ML IV SCH ×3 (04:24→20:22)
[2022-11-25] MEDS: DEXAMETHASONE SOD PHOS 4 MG/ML VIAL IVP SCH (04:25)
[2022-11-25] MEDS: TIOTROPIUM BROMIDE 18 MCG/INH HANDIHALER [5] IH SCH (08:56)
[2022-11-25] MEDS: DOCUSATE SODIUM 250 MG CAPSULE PO SCH (08:57)
[2022-11-25] MEDS: LORATADINE 10 MG TABLET PO SCH (08:57)
[2022-11-25] MEDS: METOPROLOL SUCCINATE 25 MG ER TABLET PO SCH (08:58)
[2022-11-25] MEDS: ASCORBIC ACID 500 MG TABLET PO SCH (08:59)
[2022-11-25] MEDS: PANTOPRAZOLE SODIUM 40 MG DR TABLET PO SCH (08:59)
[2022-11-25] MEDS: SEVELAMER CARBONATE 800 MG TABLET PO SCH ×3 (08:59→18:01)
[2022-11-25] MEDS: CHOLECALCIFEROL (VIT D3) 1,000 UNITS [25 MCG] TABLET PO SCH (08:59)
[2022-11-25] MEDS: AmLODIPine BESYLATE 5 MG TABLET PO SCH (08:59)
[2022-11-25] MEDS: HEPARIN SODIUM,PORCINE 5,000 UNITS/ML VIAL SQ SCH ×2 (09:00→20:23)
[2022-11-25] MEDS: ASPIRIN 81 MG DR TABLET PO SCH (09:00)
[2022-11-25] MEDS: FLUTICASONE PROPIONATE 50 MCG/SPRAY 16 GM NASAL SPRAY NASAL SCH ×2 (09:01→20:23)
[2022-11-25 09:40] LABS: COVID AG,FIA SOURCE NASOPHARYNGEAL
[2022-11-25 11:56] LABS: GLUCOMETER DEV NAME(LOC) 6N.1; GLUCOSE,POINT OF CARE 137 MG/DL (70-110)
[2022-11-25] MEDS: LATANOPROST 0.005% 2.5 ML OPHTHALMIC SOLUTION OU SCH (20:23)
[2022-11-26] MEDS: PIPERACILLIN SODIUM/TAZOBACTAM 2.25 GM in DEXTROSE 5%-WATER 50 ML IV SCH ×3 (03:39→21:01)
[2022-11-26 04:55] VITALS: BP 142/55
[2022-11-26] MEDS: DEXAMETHASONE SOD PHOS 4 MG/ML VIAL IVP SCH (04:56)
[2022-11-26 07:21] LABS: ALBUMIN 2.9 g/dL (3.4-5.0); BILIRUBIN,TOTAL 0.4 mg/dL (0.1-1.0); C-REACTIVE PROTEIN QUANT 0.16 mg/dL (0.00-0.30); CALCIUM, TOTAL 8.7 mg/dL (8.8-10.5); CREATININE 4.88 mg/dL (0.60-1.30); POTASSIUM 3.5 mmol/L (3.5-5.1); TOTAL PROTEIN, SERUM 5.9 g/dL (6.4-8.2); VANCOMYCIN,RANDOM 13.9 mcg/mL (25.0-50.0)
[2022-11-26 07:53] VITALS: BP 119/52
[2022-11-26] MEDS: HEPARIN SODIUM,PORCINE 5,000 UNITS/ML VIAL SQ SCH ×2 (08:26→21:01)
[2022-11-26] MEDS: SEVELAMER CARBONATE 800 MG TABLET PO SCH ×3 (08:26→18:03)
[2022-11-26] MEDS: FOLIC ACID/VIT B COMPLEX AND C TABLET PO SCH (08:26)
[2022-11-26] MEDS: METOPROLOL SUCCINATE 25 MG ER TABLET PO SCH (08:27)
[2022-11-26] MEDS: LORATADINE 10 MG TABLET PO SCH (08:27)
[2022-11-26] MEDS: ASCORBIC ACID 500 MG TABLET PO SCH (08:27)
[2022-11-26] MEDS: CHOLECALCIFEROL (VIT D3) 1,000 UNITS [25 MCG] TABLET PO SCH (08:27)
[2022-11-26] MEDS: DOCUSATE SODIUM 250 MG CAPSULE PO SCH (08:27)
[2022-11-26] MEDS: PANTOPRAZOLE SODIUM 40 MG DR TABLET PO SCH (08:27)
[2022-11-26] MEDS: ASPIRIN 81 MG DR TABLET PO SCH (08:27)
[2022-11-26] MEDS: AmLODIPine BESYLATE 5 MG TABLET PO SCH (08:27)
[2022-11-26] MEDS: LATANOPROST 0.005% 2.5 ML OPHTHALMIC SOLUTION OU SCH ×2 (08:30→21:01)
[2022-11-26] MEDS: FLUTICASONE PROPIONATE 50 MCG/SPRAY 16 GM NASAL SPRAY NASAL SCH ×2 (08:30→21:01)
[2022-11-26] MEDS: TIOTROPIUM BROMIDE 18 MCG/INH HANDIHALER [5] IH SCH (10:04)
[2022-11-26 12:51] LABS: GLUCOMETER DEV NAME(LOC) 6N.2B; GLUCOSE,POINT OF CARE 222 MG/DL (70-110)
[2022-11-26] MEDS ORDERED: VANCOMYCIN 1GM/WATER(PEG/NADA) 200 ML IV ONE (13:00)
[2022-11-26] MEDS ORDERED: INDIUM IN-111 OXYQUINOLINE/.5MCL ISOTOPE 1 EA INJ INJ ONE (15:55)
[2022-11-26 20:06] VITALS: BP 123/52
[2022-11-26] MEDS ORDERED: SODIUM CHLORIDE 0.9% 500 ML IV ONE (21:04)
[2022-11-27] VITALS (13 sets, daily range): BP systolic 115–141; BP diastolic 45–85
[2022-11-27] MEDS: PIPERACILLIN SODIUM/TAZOBACTAM 2.25 GM in DEXTROSE 5%-WATER 50 ML IV SCH ×3 (03:37→20:18)
[2022-11-27] MEDS: DEXAMETHASONE SOD PHOS 4 MG/ML VIAL IVP SCH (04:05)
[2022-11-27] MEDS: CHOLECALCIFEROL (VIT D3) 1,000 UNITS [25 MCG] TABLET PO SCH (08:32)
[2022-11-27] MEDS: ASCORBIC ACID 500 MG TABLET PO SCH (08:32)
[2022-11-27] MEDS: ASPIRIN 81 MG DR TABLET PO SCH (08:32)
[2022-11-27] MEDS: SEVELAMER CARBONATE 800 MG TABLET PO SCH ×3 (08:32→17:55)
[2022-11-27] MEDS: DOCUSATE SODIUM 250 MG CAPSULE PO SCH (08:33)
[2022-11-27] MEDS: LORATADINE 10 MG TABLET PO SCH (08:33)
[2022-11-27] MEDS: PANTOPRAZOLE SODIUM 40 MG DR TABLET PO SCH (08:33)
[2022-11-27] MEDS: FOLIC ACID/VIT B COMPLEX AND C TABLET PO SCH (08:33)
[2022-11-27] MEDS: TIOTROPIUM BROMIDE 18 MCG/INH HANDIHALER [5] IH SCH (08:34)
[2022-11-27] MEDS: HEPARIN SODIUM,PORCINE 5,000 UNITS/ML VIAL SQ SCH ×2 (08:36→20:18)
[2022-11-27] MEDS: FLUTICASONE PROPIONATE 50 MCG/SPRAY 16 GM NASAL SPRAY NASAL SCH ×2 (08:37→20:20)
[2022-11-27] MEDS: METOPROLOL SUCCINATE 25 MG ER TABLET PO SCH (09:00)
[2022-11-27] MEDS ORDERED: SODIUM CHLORIDE 0.9% 2,000 ML ONE (12:13)
[2022-11-27] MEDS: LATANOPROST 0.005% 2.5 ML OPHTHALMIC SOLUTION OU SCH (20:19)
[2022-11-27] MEDS: ACETAMINOPHEN 325 MG TABLET PO PRN (20:19)
[2022-11-28] MEDS: PIPERACILLIN SODIUM/TAZOBACTAM 2.25 GM in DEXTROSE 5%-WATER 50 ML IV SCH ×2 (03:32→12:09)
[2022-11-28 03:37] VITALS: BP 122/81
[2022-11-28] MEDS: DEXAMETHASONE SOD PHOS 4 MG/ML VIAL IVP SCH (05:40)
[2022-11-28 08:03] VITALS: BP 129/68
[2022-11-28] MEDS: CHOLECALCIFEROL (VIT D3) 1,000 UNITS [25 MCG] TABLET PO SCH (08:22)
[2022-11-28] MEDS: ASPIRIN 81 MG DR TABLET PO SCH (08:22)
[2022-11-28] MEDS: SEVELAMER CARBONATE 800 MG TABLET PO SCH ×2 (08:22→12:08)
[2022-11-28] MEDS: PANTOPRAZOLE SODIUM 40 MG DR TABLET PO SCH (08:22)
[2022-11-28] MEDS: HEPARIN SODIUM,PORCINE 5,000 UNITS/ML VIAL SQ SCH (08:22)
[2022-11-28] MEDS: TIOTROPIUM BROMIDE 18 MCG/INH HANDIHALER [5] IH SCH (08:22)
[2022-11-28] MEDS: ASCORBIC ACID 500 MG TABLET PO SCH (08:22)
[2022-11-28] MEDS: FOLIC ACID/VIT B COMPLEX AND C TABLET PO SCH (08:22)
[2022-11-28] MEDS: DOCUSATE SODIUM 250 MG CAPSULE PO SCH (08:23)
[2022-11-28] MEDS: LORATADINE 10 MG TABLET PO SCH (08:23)
[2022-11-28] MEDS: METOPROLOL SUCCINATE 25 MG ER TABLET PO SCH (08:23)
[2022-11-28] MEDS: FLUTICASONE PROPIONATE 50 MCG/SPRAY 16 GM NASAL SPRAY NASAL SCH (08:23)
[2022-11-28] MEDS ORDERED: AmLODIPine BESYLATE 5 MG TABLET PO SCH (09:00)
[2022-11-28 14:30] VITALS: BP 128/56
[2022-11-28] MEDS ORDERED: FOLI0.4T6 PO (14:50)
[2022-11-28] MEDS ORDERED: TIOT185 IH (14:54)
[2022-11-28] MEDS ORDERED: VANC1PIG IVPB (14:56)
[2022-11-29 09:07] LABS: IGM (IMMUNOFIXATION) 25 mg/dL (26-217)
[2022-11-29 11:06] LABS: FREE KAPPA LIGHT CHAINS,S 74.1 mg/L (3.3-19.4); FREE KAPPA/LAMBDA LT CHN RATIO 1.82 (0.26-1.65)
== END 2022-11-28 15:35 | DRG 871 ==
LOC: EMS 21:17 → 5N 11-21 05:23 → 6N 11-23 15:15
PROVIDERS: ADMIT Internal Medicine; ATTEND Internal Medicine
PROC: 02HV33Z Insertion of Infusion Device into Superior Vena Cava, Percutaneous Approach (ICD-10-PCS; 2022-11-21)
PROC: B548ZZA Ultrasonography of Superior Vena Cava, Guidance (ICD-10-PCS; 2022-11-21)
PROC: 5A1D70Z Performance of Urinary Filtration, Intermittent, Less than 6 Hours Per Day (ICD-10-PCS; principal; 2022-11-22)
PROC: 5A1D70Z Performance of Urinary Filtration, Intermittent, Less than 6 Hours Per Day (ICD-10-PCS; 2022-11-24)
PROC: 5A1D70Z Performance of Urinary Filtration, Intermittent, Less than 6 Hours Per Day (ICD-10-PCS; 2022-11-25)
PROC: 5A1D70Z Performance of Urinary Filtration, Intermittent, Less than 6 Hours Per Day (ICD-10-PCS; 2022-11-27)
DX: A41.9 Sepsis, unspecified organism (principal); G93.41 Metabolic encephalopathy; U07.1 COVID-19; J96.01 Acute respiratory failure with hypoxia; N18.6 End stage renal disease; I50.43 Acute on chronic combined systolic (congestive) and diastolic (congestive) heart failure; J69.0 Pneumonitis due to inhalation of food and vomit; I21.A1 Myocardial infarction type 2; J44.1 Chronic obstructive pulmonary disease with (acute) exacerbation; Z68.42 Body mass index [BMI] 45.0-49.9, adult; R64 Cachexia; I13.2 Hypertensive heart and chronic kidney disease with heart failure and with stage 5 chronic kidney disease, or end stage renal disease; I42.9 Cardiomyopathy, unspecified; E87.1 Hypo-osmolality and hyponatremia; J44.0 Chronic obstructive pulmonary disease with (acute) lower respiratory infection; N25.81 Secondary hyperparathyroidism of renal origin; E46 Unspecified protein-calorie malnutrition; Z99.2 Dependence on renal dialysis; E66.01 Morbid (severe) obesity due to excess calories; R62.7 Adult failure to thrive; E11.22 Type 2 diabetes mellitus with diabetic chronic kidney disease; E83.51 Hypocalcemia; E83.39 Other disorders of phosphorus metabolism; E88.09 Other disorders of plasma-protein metabolism, not elsewhere classified; M81.0 Age-related osteoporosis without current pathological fracture; E78.5 Hyperlipidemia, unspecified; D69.6 Thrombocytopenia, unspecified; D63.1 Anemia in chronic kidney disease; K21.9 Gastro-esophageal reflux disease without esophagitis; E11.40 Type 2 diabetes mellitus with diabetic neuropathy, unspecified; K57.30 Diverticulosis of large intestine without perforation or abscess without bleeding; E87.5 Hyperkalemia; F32.A Depression, unspecified; G47.30 Sleep apnea, unspecified; H40.9 Unspecified glaucoma; I69.30 Unspecified sequelae of cerebral infarction; Z91.040 Latex allergy status; Z88.5 Allergy status to narcotic agent; Z88.8 Allergy status to other drugs, medicaments and biological substances; Z91.018 Allergy to other foods; Z91.09 Other allergy status, other than to drugs and biological substances; Z79.899 Other long term (current) drug therapy; Z91.011 Allergy to milk products; Z79.82 Long term (current) use of aspirin
CPT/HCPCS: 70450; 71045; 71260; 72193; 74160; 78806; 80048; 80053; 80076; 80202; 82784; 82962; 83605; 83690; 83880; 83883; 84145; 84155; 84165; 84484; 85025; 85730; 86140; 86334; 87040; 87077; 87205; 87340; 87804; 90935; 92526; 92610; 93005; 93306; 93990; 99291; A9547; J1100; J1644; J1940; J2543; J3370; J7030; J7040; J7050; J7060; Q9967; 36415-L1; 36415-TC; U0003

== ENCOUNTER 2023-02-24 18:50 | Emergency (ER) | payer MEDICARE, MEDICAID ==
[~2023-02-24] VITALS: Ht 157.5 cm; Wt 126.1 kg
[~2023-02-24 18:50] MED LIST changes: -AMOX1TAB15 PO; -BECL10.62 IH; +FOLI0.4T6 PO; -FURO20 PO; +HEPA500018 SQ; +LATA2.5D14 OU; -LOVA20TA73 PO; -PREG50CA63 PO; +VANC1PIG IVPB; +[UNRECOGNIZED DRUG - CODE] SQ
[2023-02-24] MEDS ORDERED: GELATIN SPONGE,ABSORBABLE 12-7 MM TP ONE (21:45)
[2023-02-24 22:31] LABS: BASOPHILS % (AUTO) 0.5 % (0.0-2.0); HEMATOCRIT 34.6 % (36-46); HEMOGLOBIN 10.3 g/dL (12.0-16.0); LYMPHOCYTES # (AUTO) 0.9 K/uL (1.0-4.8); LYMPHOCYTES % (AUTO) 11.6 % (22.0-44.0); MEAN CORPUSCULAR HEMOGLOBIN 31.9 pg (26.0-34.0); MEAN CORPUSCULAR HGB CONC 29.9 G/dL (31.0-37.0); MEAN CORPUSCULAR VOLUME 107 fL (80-100); MONOCYTES # (AUTO) 0.8 K/uL (0.1-1.0); MONOCYTES % (AUTO) 10.8 % (2.0-9.0); NEUTROPHILS # (AUTO) 5.9 K/uL (1.8-7.7); NEUTROPHILS % (AUTO) 75.1 % (40.0-70.0); PLATELET COUNT (AUTO) 101 K/uL (150-450); RED BLOOD CELL COUNT(AUTO) 3.24 MIL/uL (4.00-5.20); RED CELL DISTRIBUTION WIDTH 16.7 % (11.5-14.5)
[2023-02-24 22:39] LABS: CALCIUM, TOTAL 8.7 mg/dL (8.8-10.5); CREATININE 3.55 mg/dL (0.60-1.30); POTASSIUM 3.9 mmol/L (3.5-5.1)
[2023-02-24 22:46] LABS: ALBUMIN 3.2 g/dL (3.4-5.0); BILIRUBIN,TOTAL 0.2 mg/dL (0.1-1.0); TOTAL PROTEIN, SERUM 6.8 g/dL (6.4-8.2)
[2023-02-25 00:19] VITALS: BP 110/71; PULSE 77; RESP 17; TEMP 97.6
== END 2023-02-25 01:37 | disposition home or self-care (01) ==
LOC: EMS 18:55
DX: T82.838A Hemorrhage due to vascular prosthetic devices, implants and grafts, initial encounter (principal); J45.909 Unspecified asthma, uncomplicated; I11.0 Hypertensive heart disease with heart failure; I50.9 Heart failure, unspecified; J44.9 Chronic obstructive pulmonary disease, unspecified; F32.A Depression, unspecified; E78.00 Pure hypercholesterolemia, unspecified; K21.9 Gastro-esophageal reflux disease without esophagitis; I25.2 Old myocardial infarction; I63.9 Cerebral infarction, unspecified; E11.22 Type 2 diabetes mellitus with diabetic chronic kidney disease; N18.6 End stage renal disease; Z88.5 Allergy status to narcotic agent; Z88.8 Allergy status to other drugs, medicaments and biological substances; Z91.040 Latex allergy status; Z91.011 Allergy to milk products; Z91.018 Allergy to other foods; Y92.89 Other specified places as the place of occurrence of the external cause
CPT/HCPCS: 80053; 85025; 99283

== ENCOUNTER 2023-08-02 05:49 | Day surgery (SDC) | payer MEDICARE, MEDICAID ==
[~2023-08-02] VITALS: Ht 157.5 cm; Wt 103.6 kg
[~2023-08-02 05:49] MED LIST changes: -AMLO5TAB66 PO; -ASCO500 PO; -DOCU-350 PO; +DOCU-412 PO; -FOLI0.4T6 PO; +FOLI0.8T22 PO; -HEPA500018 SQ; +INSU100V SQ; -LORA10TA7 PO; -PANT-31 PO; +PANT20TA18 PO; +PREG50CA64 PO; -VANC1PIG IVPB; -[UNRECOGNIZED DRUG - CODE] SQ
[2023-08-02] MEDS ORDERED: HYALURONATE SOD 8.5MG/0.85ML 10 MG/ML SYRINGE IO ONE (05:50)
[2023-08-02] MEDS: KETOROLAC TROMETHAMINE 0.5% 5 ML OPHTHALMIC SOLUTION OD SCH ×3 (06:11→06:26)
[2023-08-02] MEDS: TROPICAMIDE 1% 2 ML OPHTHALMIC SOLUTION OD SCH ×3 (06:12→06:26)
[2023-08-02] MEDS: PHENYLEPHRINE HCL 2.5% 2 ML OPHTHALMIC SOLUTION OD SCH ×3 (06:12→06:27)
[2023-08-02] MEDS: CYCLOPENTOLATE HCL 1% 2 ML OPHTHALMIC SOLUTION OD SCH ×3 (06:12→06:26)
[2023-08-02] MEDS: MOXIFLOXACIN HCL 0.5% 3 ML OPHTHALMIC SOLUTION OD SCH ×3 (06:13→06:27)
[2023-08-02] MEDS: TETRACAINE HCL/PF 0.5% 4 ML OPHTHALMIC SOLUTION OD SCH ×3 (06:13→06:27)
[2023-08-02] MEDS ORDERED: EPINEPHrine 1:1,000 [1 MG/ML] VIAL ONE (06:58)
[2023-08-02] MEDS ORDERED: LIDOCAINE/PF 1% 2 ML VIAL ONE (06:58)
[2023-08-02] MEDS ORDERED: BALANCED SALT 15 ML OPHTHALMIC IRRIG.SOLN ONE (06:59)
[2023-08-02] MEDS ORDERED: RINGERS SOLUTION,LACTATED 500 ML IV ONE (07:00)
[2023-08-02] MEDS ORDERED: TETRACAINE HCL/PF 0.5% 4 ML OPHTHALMIC SOLUTION OD ONE (08:00)
[2023-08-02] MEDS ORDERED: PROPARACAINE HCL 0.5% 15 ML OPHTHALMIC SOLUTION OD ONE (08:00)
[2023-08-02] MEDS ORDERED: POVIDONE-IODINE 5% 30 ML OPHTHALMIC SOLUTION ONE (08:53)
[2023-08-02] MEDS ORDERED: TETRACAINE HCL/PF 0.5% 4 ML OPHTHALMIC SOLUTION ONE ×2 (08:54→08:55)
[2023-08-02] MEDS ORDERED: NEOMYCIN/POLYMYXIN B/DEXAMETH 3.5 GM OPHTHALMIC OINTMENT ONE (08:54)
[2023-08-02] MEDS ORDERED: PrednisoLONE ACETATE 1% 5 ML OPHTHALMIC SUSPENSION ONE (09:05)
== END 2023-08-02 10:50 | disposition home or self-care (01) ==
LOC: SURGERY 05:49
PROVIDERS: ATTEND Ophthalmology
DX: H25.11 Age-related nuclear cataract, right eye (principal); I12.9 Hypertensive chronic kidney disease with stage 1 through stage 4 chronic kidney disease, or unspecified chronic kidney disease; N18.9 Chronic kidney disease, unspecified; I25.2 Old myocardial infarction; M19.90 Unspecified osteoarthritis, unspecified site; E78.00 Pure hypercholesterolemia, unspecified; Z86.16 Personal history of COVID-19; Z99.2 Dependence on renal dialysis
CPT/HCPCS: 93005; 66984; J0171; J3490; Q9967; J7120; V2632

== ENCOUNTER 2023-12-01 18:04 | Emergency (ER) | payer MEDICARE, MEDICAID ==
[~2023-12-01] VITALS: Ht 167.6 cm; Wt 105.4 kg
[~2023-12-01 18:04] MED LIST changes: -SEVE800T17 PO; +SEVE800T38 PO
[2023-12-01] MEDS ORDERED: ETOMIDATE 2 MG/ML 10 ML VIAL ONE (18:08)
[2023-12-01] MEDS ORDERED: PHENYLEPHRINE HCL IN 0.9% NACL 400 MCG/10 ML SYRINGE IVP ONE ×2 (18:09→19:45)
[2023-12-01] MEDS ORDERED: ROCURONIUM BROMIDE 10 MG/ML 5 ML VIAL ONE (18:09)
[2023-12-01 18:22] VITALS: PULSE 115; RESP 18; O2SAT 99
[2023-12-01 18:23] VITALS: RESP 18; TEMP 94
[2023-12-01] MEDS ORDERED: PROPOFOL 1000 MG/ISO-OSM 100 ML IV PRN (18:30)
[2023-12-01] MEDS ORDERED: VASOPRESSIN 40 UNITS in DEXTROSE 5%-WATER 98 ML IV PRN (18:45)
[2023-12-01] MEDS: NOREPINEPHRINE 8 MG/0.9 % NACL 250 ML IV PRN (18:54)
[2023-12-01] MEDS: ROCURONIUM BROMIDE 10 MG/ML 5 ML VIAL IVP ONE (18:55)
[2023-12-01] MEDS: ETOMIDATE 2 MG/ML 10 ML VIAL IVP ONE (18:56)
[2023-12-01] MEDS: VASOPRESSIN 20 UNITS/ML VIAL IVP ONE (18:59)
[2023-12-01] MEDS: PHENYLEPHRINE HCL IN 0.9% NACL 400 MCG/10 ML SYRINGE IVP ONE (18:59)
[2023-12-01] MEDS: AMIODARONE HCL 50 MG/ML 3 ML VIAL IVP ONE (19:12)
[2023-12-01] MEDS: SODIUM BICARBONATE [ADULT] 8.4% 50 MEQ/50 ML SYRINGE IVP ONE (19:12)
[2023-12-01] MEDS: DOPamine 400MG/D5W[STANDARD] 250 ML IV PRN (19:12)
[2023-12-01] MEDS: CALCIUM CHLORIDE 100 MG/ML 10 ML SYRINGE IVP ONE (19:12)
[2023-12-01 19:15] VITALS: BP 45/21; PULSE 87
[2023-12-01] MEDS: VASOPRESSIN 40 UNITS in DEXTROSE 5%-WATER 98 ML IV PRN (19:15)
[2023-12-01 19:42] LABS: BASOPHILS % (AUTO) 0.3 % (0.0-2.0); EOSINOPHILS % (AUTO) 3.1 % (1.0-6.0); HEMATOCRIT 23.3 % (36-46); LYMPHOCYTES # (AUTO) 3.7 K/uL (1.0-4.8); LYMPHOCYTES % (AUTO) 51.4 % (22.0-44.0); MEAN CORPUSCULAR HEMOGLOBIN 30.3 pg (26.0-34.0); MEAN CORPUSCULAR HGB CONC 29.9 G/dL (31.0-37.0); MEAN CORPUSCULAR VOLUME 101 fL (80-100); MONOCYTES # (AUTO) 0.2 K/uL (0.1-1.0); MONOCYTES % (AUTO) 3.2 % (2.0-9.0); WHITE BLOOD COUNT (AUTO) 7.2 K/uL (4.5-11.0)
[2023-12-01] MEDS ORDERED: EPINEPHrine 2 MG in DEXTROSE 5%-WATER 248 ML IV PRN (19:45)
[2023-12-01 20:04] LABS: INR 1.6 (0.9-1.1); PROTHROMBIN TIME 16.7 SEC (9.4-11.6)
[2023-12-01 20:17] LABS: TROPONIN I-HIGH SENSITIVITY 397 ng/L (<51)
[2023-12-01 20:25] LABS: CALCIUM, TOTAL 9.7 mg/dL (8.8-10.5); CREATININE 3.43 mg/dL (0.60-1.30); POTASSIUM 4.4 mmol/L (3.5-5.1)
[2023-12-01 20:49] LABS: ALBUMIN 1.1 g/dL (3.4-5.0); BILIRUBIN,TOTAL 0.2 mg/dL (0.1-1.0); TOTAL PROTEIN, SERUM 2.5 g/dL (6.4-8.2)
[2023-12-01 21:08] LABS: PLATELET COUNT (AUTO) 33 K/uL (150-450); RBC MORPHOLOGY COMMENT ABNORMAL RBC MORPH
== END 2023-12-01 23:30 ==
LOC: EMS 18:11
DX: T82.838A Hemorrhage due to vascular prosthetic devices, implants and grafts, initial encounter (principal); I46.9 Cardiac arrest, cause unspecified; J44.9 Chronic obstructive pulmonary disease, unspecified; F32.A Depression, unspecified; E11.9 Type 2 diabetes mellitus without complications; E80.0 Hereditary erythropoietic porphyria; I13.0 Hypertensive heart and chronic kidney disease with heart failure and stage 1 through stage 4 chronic kidney disease, or unspecified chronic kidney disease; N18.9 Chronic kidney disease, unspecified; Z98.890 Other specified postprocedural states; Z91.040 Latex allergy status; Z91.011 Allergy to milk products; Z91.018 Allergy to other foods; Z88.8 Allergy status to other drugs, medicaments and biological substances
CPT/HCPCS: 99291; 36430; 92950; 96375; 31500; 96365; 71045; 80053; 82550; 83880; 84484; 85025; 85610; 85730; 86850; 86900; 86901; 86920; 36415; 93005; 96368; P9016; J3490 ×3; Q9967; J7060 ×2; J0171; 94002; J2704